=== PATIENT | female | born 1995 | race Asian ===

== ENCOUNTER 2019-02-13 00:06 | Emergency (ER) | payer OTHER ==
[~2019-02-13] VITALS: Ht 154.9 cm; Wt 61.8 kg
[2019-02-13] MEDS ORDERED: DEPA1TAB3 PO (00:13)
[2019-02-13] MEDS ORDERED: CONC27TA4 PO (00:13)
[2019-02-13] MEDS ORDERED: CLON-627 PO (00:14)
[2019-02-13 01:07] LABS: BASO % 0.4 % (0.0-1.0); EOS # 0.1 10^3/uL (0.0-0.5); EOS % 1.2 % (0.0-3.0); HEMATOCRIT 39.3 % (36.0-47.0); HEMOGLOBIN 12.9 g/dl (12.0-15.5); LYMPH # 3.4 10^3/uL (1.5-5.0); LYMPH % 37.6 % (24.0-44.0); MEAN CORPUSCULAR HEMOGLOBIN 22.9 pg (27.0-33.0); MEAN CORPUSCULAR HGB CONC 32.8 g/dl (32.0-36.5); MEAN CORPUSCULAR VOLUME 69.7 fl (80.0-96.0); MONO # 0.6 10^3/uL (0.0-0.8); NEUTROPHILS # 4.8 10^3/uL (1.5-8.5); NEUTROPHILS % 53.7 % (36.0-66.0); PLATELET COUNT, AUTOMATED 378 10^3/uL (150-450); RED BLOOD COUNT 5.64 10^6/uL (4.00-5.40); WHITE BLOOD COUNT 8.9 10^3/uL (4.0-10.0)
[2019-02-13 01:20] LABS: BLOOD UREA NITROGEN 15 MG/DL (7-18); CALCIUM LEVEL 8.9 MG/DL (8.5-10.1); CARBON DIOXIDE LEVEL 29 MEQ/L (21-32); CHLORIDE LEVEL 104 MEQ/L (98-107); CK-MB VALUE MASS < 1.0 NG/ML (<3.6); CPK CREATINE PHOSPHOKINASE 94 U/L (26-192); CREATININE FOR GFR 0.82 MG/DL (0.55-1.30); GLOMERULAR FILTRATION RATE > 60.0 (>60); GLUCOSE, FASTING 84 MG/DL (70-100); MB/CK RELATIVE INDEX 1.06 (< OR =4); POTASSIUM SERUM 3.7 MEQ/L (3.5-5.1); SODIUM LEVEL 138 MEQ/L (136-145); TROPONIN I < 0.02 NG/ML (< 0.10)
[2019-02-13 02:09] LABS: ALBUMIN 3.8 GM/DL (3.2-5.2); ALT/SGPT 23 U/L (12-78); BILIRUBIN,DIRECT 0.1 MG/DL (0.0-0.2); BILIRUBIN,TOTAL 0.6 MG/DL (0.2-1.0); LIPASE 121 U/L (73-393); TOTAL PROTEIN 7.9 GM/DL (6.4-8.2)
[2019-02-13] MEDS ORDERED: ONDANSETRON 4MG/2ML VIAL (J2405) IV ONE (02:30)
[2019-02-13] MEDS ORDERED: COLA100C5 PO (04:38)
[2019-02-13 04:49] VITALS: BP 102/56
--- NOTE | 2019-02-13 07:48 | REP ---
Clinical: Epigastric and upper abdominal pain. Technique: Upright view of the chest with supine and upright views of the abdomen and pelvis. Findings: Frontal upright view of the chest demonstrates no acute cardiopulmonary process or free air below the diaphragm to suspect pneumoperitoneum. Supine and upright views of the abdomen and pelvis demonstrate nonspecific bowel gas pattern without obstruction or perforation. No organomegaly. No abnormal calcifications. Sevilla rods spanning the thoracolumbar spine noted. Impression: Nonspecific bowel gas pattern. Electronically Signed by Ismael Larson MD 02/13/2019 07:39 A
--- NOTE | 2019-02-13 07:52 | REP ---
Clinical: Lower abdominal and pelvic pain. Technique: Transabdominal pelvic ultrasound followed by transvaginal examination for better evaluation of the endometrium and adnexa with color Doppler evaluation of the ovaries. Findings: Bladder is unremarkable and incompletely distended measuring approximately 4.3 x 2.0 x 2.6 cm. Heterogeneous retroflexed uterus measures 9.0 x 4.4 x 5.7 cm. Endometrial complex measures 8 mm thickness. No discrete uterine or endometrial abnormalities appreciated. The bilateral ovaries are normal in appearance and vascularity without torsion. Right ovary measures 4.8 x 2.9 x 2.9 cm (RI 0.61). Left ovary measures 3.5 x 2.5 x 3.8 cm and includes 2.3 cm presumed physiologic cyst / dominant follicle (RI 0.57). No pelvic fluid or adnexal mass lesion. Impression: 1. 2.3 cm left ovarian cyst / dominant follicle. 2. Otherwise normal pelvic ultrasound. Electronically Signed by Ismael Larson MD 02/13/2019 07:43 A
--- NOTE | 2019-02-13 08:00 | ECGEPIP ---
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
== END 2019-02-13 05:04 | disposition home or self-care (01) ==
LOC: M ED 00:06
DX: R07.89 Other chest pain (principal); K56.49 Other impaction of intestine; Z79.899 Other long term (current) drug therapy
CPT/HCPCS: 74021; 76830; 76856; 80048; 80076; 81001; 82550; 82553; 83690; 84484; 84702; 85025; 87086; 93005; 93041; 93976; 94760; 96374; 99285; J2405

== ENCOUNTER 2019-04-11 17:57 | Emergency (ER) | payer OTHER ==
[~2019-04-11] VITALS: Ht 152.4 cm; Wt 77.1 kg
[~2019-04-11 17:57] MED LIST: CLON-627 PO; COLA100C5 PO; CONC27TA4 PO; DEPA1TAB3 PO
[2019-04-11] MEDS ORDERED: NS 1,000 ML IV SCH (20:30)
[2019-04-11] MEDS ORDERED: fentaNYL 100 MCG/2 ML INJECTION (J3010) IV ONE (20:30)
[2019-04-11 20:34] LABS: BASO # 0.1 10^3/uL (0.0-0.2); BASO % 0.3 % (0.0-1.0); EOS # 0.1 10^3/uL (0.0-0.5); EOS % 0.6 % (0.0-3.0); HEMATOCRIT 44.2 % (36.0-47.0); LYMPH # 3.5 10^3/uL (1.5-5.0); LYMPH % 22.5 % (24.0-44.0); MEAN CORPUSCULAR HEMOGLOBIN 22.3 pg (27.0-33.0); MEAN CORPUSCULAR HGB CONC 31.7 g/dl (32.0-36.5); MEAN CORPUSCULAR VOLUME 70.4 fl (80.0-96.0); MONO # 0.7 10^3/uL (0.0-0.8); MONO % 4.6 % (0.0-5.0); NEUTROPHILS # 11.1 10^3/uL (1.5-8.5); NEUTROPHILS % 71.5 % (36.0-66.0); PLATELET COUNT, AUTOMATED 379 10^3/uL (150-450); RED BLOOD COUNT 6.28 10^6/uL (4.00-5.40); WHITE BLOOD COUNT 15.5 10^3/uL (4.0-10.0)
[2019-04-11 20:51] LABS: ALBUMIN 4.2 GM/DL (3.2-5.2); ALT/SGPT 21 U/L (12-78); BILIRUBIN,DIRECT 0.2 MG/DL (0.0-0.2); BILIRUBIN,TOTAL 0.6 MG/DL (0.2-1.0); BLOOD UREA NITROGEN 14 MG/DL (7-18); CARBON DIOXIDE LEVEL 28 MEQ/L (21-32); CHLORIDE LEVEL 103 MEQ/L (98-107); CREATININE FOR GFR 0.77 MG/DL (0.55-1.30); GLOMERULAR FILTRATION RATE > 60.0 (>60); GLUCOSE, FASTING 73 MG/DL (70-100); INR 1.03; PARTIAL THROMBOPLASTIN TIME 33.3 SECONDS (25.0-38.4); PROTHROMBIN TIME 13.2 SECONDS (11.8-14.0); SODIUM LEVEL 139 MEQ/L (136-145); TOTAL PROTEIN 8.3 GM/DL (6.4-8.2)
[2019-04-11 21:17] VITALS: BP 109/61
--- NOTE | 2019-04-12 08:16 | REP ---
Head CT without contrast: Repeat dictation. History: Trauma. Preliminary report is provided at the time of exam by Willa frazier. Comparison study: No comparison brain imaging. CT findings: Bone window settings demonstrate an intact bony calvarium. There is no evidence of skull fracture or incidental bony calvarial lesion. The visualized paranasal sinuses appear clear. No intraorbital abnormality is seen. On soft tissue window setting images; the lateral, third, and fourth ventricles are normal in size and position. Sosa-white differentiation pattern is normal above and below the tentorium. There are is no evidence of intracranial hemorrhage. No mass, edema, infarction, or midline shift is seen. No extra-axial fluid collection is appreciated. Impression: Negative noncontrast head CT. Electronically Signed by Catrachito Byers MD 04/12/2019 08:08 A
--- NOTE | 2019-04-12 08:18 | REP ---
CT study of the cervical spine without contrast: Repeat dictation History: Trauma. Preliminary report is provided at the time of exam by Willa CABRAL. Technique: Helical scanning is acquired and overlapping 2 mm high resolution axial images were generated and reviewed at bone and soft tissue window settings. Coronal and sagittal multiplanar re-formations images are generated. CT findings: There is no evidence of cervical spine element fracture. No skull base fracture is seen. Cervical vertebral body heights are preserved. There is some slight reversal of the normal cervical lordosis and straightening. Alignment is normal. Facet joints are normally aligned bilaterally at each cervical level on multiplanar re-formations images. There is no evidence of intraspinal or paraspinal hematoma. No extra vertebral abnormality is seen. Impression: Negative CT study of the cervical spine without contrast. No fracture seen. Electronically Signed by Catrachito Byers MD 04/12/2019 08:10 A
== END 2019-04-11 21:32 | disposition short-term general hospital (02) ==
LOC: M ED 17:57
DX: R20.2 Paresthesia of skin (principal); V80.010A Animal-rider injured by fall from or being thrown from horse in noncollision accident, initial encounter; Z88.0 Allergy status to penicillin; Z88.1 Allergy status to other antibiotic agents; Z88.5 Allergy status to narcotic agent; Z79.899 Other long term (current) drug therapy
CPT/HCPCS: 51702; 70450; 72125; 80048; 80076; 85025; 85610; 85730; 86850; 86900; 86901; 93041; 94760; 96374; 99285; J3010

== ENCOUNTER 2019-05-03 12:30 | Emergency (ER) | payer OTHER ==
[~2019-05-03] VITALS: Ht 152.4 cm; Wt 76.3 kg
[2019-05-03] MEDS ORDERED: ACET-683 PO (12:40)
[2019-05-03] MEDS ORDERED: IBUP200C25 PO (12:40)
[2019-05-03 14:58] LABS: INFLUENZA A AMPLIFICATION NEGATIVE (NEGATIVE); INFLUENZA B AMPLIFICATION POSITIVE (NEGATIVE)
[2019-05-03] MEDS ORDERED: NS 1,000 ML IV ONE (15:15)
[2019-05-03] MEDS ORDERED: ACETAMINOPHEN 325 MG TAB PO ONE (15:15)
[2019-05-03] MEDS ORDERED: ONDANSETRON 4MG/2ML VIAL (J2405) IV ONE (15:15)
[2019-05-03 15:37] LABS: BASO % 0.3 % (0.0-1.0); HEMATOCRIT 41.9 % (36.0-47.0); HEMOGLOBIN 13.7 g/dl (12.0-15.5); LYMPH # 2.2 10^3/uL (1.5-5.0); LYMPH % 23.7 % (24.0-44.0); MEAN CORPUSCULAR HEMOGLOBIN 22.6 pg (27.0-33.0); MEAN CORPUSCULAR HGB CONC 32.7 g/dl (32.0-36.5); MEAN CORPUSCULAR VOLUME 69.1 fl (80.0-96.0); MONO # 0.9 10^3/uL (0.0-0.8); MONO % 9.5 % (0.0-5.0); NEUTROPHILS % 66.2 % (36.0-66.0); PLATELET COUNT, AUTOMATED 288 10^3/uL (150-450); RED BLOOD COUNT 6.06 10^6/uL (4.00-5.40); WHITE BLOOD COUNT 9.1 10^3/uL (4.0-10.0)
[2019-05-03 16:00] LABS: BLOOD UREA NITROGEN 7 MG/DL (7-18); CALCIUM LEVEL 8.6 MG/DL (8.5-10.1); CARBON DIOXIDE LEVEL 28 MEQ/L (21-32); CHLORIDE LEVEL 101 MEQ/L (98-107); CREATININE FOR GFR 0.95 MG/DL (0.55-1.30); GLOMERULAR FILTRATION RATE > 60.0 (>60); GLUCOSE, FASTING 86 MG/DL (70-100); POTASSIUM SERUM 3.8 MEQ/L (3.5-5.1); SODIUM LEVEL 137 MEQ/L (136-145)
[2019-05-03] MEDS ORDERED: KETOROLAC 30 MG/ML VIAL (J1885) IV ONE (16:30)
[2019-05-03] MEDS ORDERED: BENZ200C70 PO (17:01)
[2019-05-03] MEDS ORDERED: ONDA4TAB6 PO (17:01)
[2019-05-03 17:16] VITALS: BP 110/58
--- NOTE | 2019-05-04 05:43 | ECGEPIP ---
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 Order Number: [id number] Reading MD: Sukhwinder Daniel Measurements Intervals [place] Rate: 114 P: 40 MN: 135 QRS: 25 QRSD: 77 T: 16 QT: 342 QTc: 472 Interpretive Statements SINUS TACHYCARDIA Nonspecific ST-T wave abnormalities new from tracing done 02-13-19 Electronically Signed on 05-04-2019 5:43:04 EST by Sukhwinder Daniel
== END 2019-05-03 17:19 | disposition home or self-care (01) ==
LOC: M ED 12:30
DX: J10.1 Influenza due to other identified influenza virus with other respiratory manifestations (principal); E86.0 Dehydration; F84.0 Autistic disorder; D56.5 Hemoglobin E-beta thalassemia; Z86.69 Personal history of other diseases of the nervous system and sense organs; Z88.0 Allergy status to penicillin; Z88.1 Allergy status to other antibiotic agents; Z88.5 Allergy status to narcotic agent; Z79.899 Other long term (current) drug therapy
CPT/HCPCS: 36415; 80048; 85025; 87502; 87880; 93005; 96361; 96374; 96375; 99284; J1885; J2405

== ENCOUNTER 2019-06-11 21:56 | Emergency (ER) | payer OTHER, SELFPAY ==
[~2019-06-11] VITALS: Ht 154.9 cm; Wt 59.1 kg
[~2019-06-11 21:56] MED LIST changes: +ACET-683 PO; +BENZ200C70 PO; +IBUP200C25 PO; +ONDA4TAB6 PO
[2019-06-11 23:01] LABS: INFLUENZA A AMPLIFICATION NEGATIVE (NEGATIVE); INFLUENZA B AMPLIFICATION NEGATIVE (NEGATIVE)
[2019-06-11 23:10] LABS: BASO % 0.3 % (0.0-1.0); EOS # 0.2 10^3/uL (0.0-0.5); EOS % 1.8 % (0.0-3.0); HEMATOCRIT 39.3 % (36.0-47.0); HEMOGLOBIN 12.7 g/dl (12.0-15.5); LYMPH # 3.2 10^3/uL (1.5-5.0); LYMPH % 24.7 % (24.0-44.0); MEAN CORPUSCULAR HEMOGLOBIN 22.3 pg (27.0-33.0); MEAN CORPUSCULAR HGB CONC 32.3 g/dl (32.0-36.5); MEAN CORPUSCULAR VOLUME 69.1 fl (80.0-96.0); MONO # 0.6 10^3/uL (0.0-0.8); MONO % 4.5 % (0.0-5.0); NEUTROPHILS # 8.9 10^3/uL (1.5-8.5); NEUTROPHILS % 68.3 % (36.0-66.0); PLATELET COUNT, AUTOMATED 412 10^3/uL (150-450); RED BLOOD COUNT 5.69 10^6/uL (4.00-5.40); WHITE BLOOD COUNT 13.1 10^3/uL (4.0-10.0)
[2019-06-11 23:31] LABS: BLOOD UREA NITROGEN 10 MG/DL (7-18); CALCIUM LEVEL 8.9 MG/DL (8.5-10.1); CARBON DIOXIDE LEVEL 31 MEQ/L (21-32); CHLORIDE LEVEL 104 MEQ/L (98-107); CK-MB VALUE MASS < 1.0 NG/ML (<3.6); CPK CREATINE PHOSPHOKINASE 81 U/L (26-192); CREATININE FOR GFR 0.78 MG/DL (0.55-1.30); GLOMERULAR FILTRATION RATE > 60.0 (>60); GLUCOSE, FASTING 102 MG/DL (70-100); MB/CK RELATIVE INDEX 1.23 (< OR =4); POTASSIUM SERUM 3.9 MEQ/L (3.5-5.1); SODIUM LEVEL 137 MEQ/L (136-145); TROPONIN I < 0.02 NG/ML (< 0.10)
[2019-06-12 00:04] VITALS: BP 128/78
--- NOTE | 2019-06-12 05:47 | ECGEPIP ---
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
--- NOTE | 2019-06-12 07:59 | REP ---
Clinical: Chest pain and shortness of breath . Comparison: None . Findings: The mediastinum and cardiac silhouette are stable and within normal limits for portable technique. The lung dixon are clear without acute consolidation, effusion, or pneumothorax. Skeletal structures are intact. Sevilla rods noted. Impression: No acute cardiopulmonary process appreciated. Electronically Signed by Ismael Larson MD 06/12/2019 07:51 A
== END 2019-06-12 00:06 | disposition home or self-care (01) ==
LOC: M ED 21:56
DX: B34.9 Viral infection, unspecified (principal); R06.02 Shortness of breath; R50.9 Fever, unspecified; R07.9 Chest pain, unspecified; F84.0 Autistic disorder; F91.9 Conduct disorder, unspecified; Z88.0 Allergy status to penicillin; Z88.1 Allergy status to other antibiotic agents; Z88.5 Allergy status to narcotic agent; Z79.899 Other long term (current) drug therapy
CPT/HCPCS: 36415; 71045; 80048; 82550; 82553; 84484; 85025; 87502; 93005; 99284; U0002

== ENCOUNTER 2019-09-18 04:07 | Emergency (ER) | payer OTHER, SELFPAY ==
[~2019-09-18] VITALS: Ht 152.4 cm; Wt 72.7 kg
[2019-09-18 05:02] LABS: BASO # 0.1 10^3/uL (0.0-0.2); BASO % 0.4 % (0.0-1.0); EOS # 0.1 10^3/uL (0.0-0.5); EOS % 0.6 % (0.0-3.0); HEMATOCRIT 40.6 % (36.0-47.0); HEMOGLOBIN 13.4 g/dl (12.0-15.5); LYMPH # 3.6 10^3/uL (1.5-5.0); LYMPH % 26.6 % (24.0-44.0); MEAN CORPUSCULAR HEMOGLOBIN 22.8 pg (27.0-33.0); MEAN CORPUSCULAR VOLUME 68.9 fl (80.0-96.0); MONO # 0.8 10^3/uL (0.0-0.8); PLATELET COUNT, AUTOMATED 429 10^3/uL (150-450); RED BLOOD COUNT 5.89 10^6/uL (4.00-5.40); WHITE BLOOD COUNT 13.5 10^3/uL (4.0-10.0)
[2019-09-18 07:27] VITALS: BP 103/59
--- NOTE | 2019-09-18 08:35 | REP ---
REPEAT DICTATION OBSTETRIC SONOGRAPHY: HISTORY: Preliminary report is provided at the time of the exam by [facility]. Injury in a fall. Blunt trauma. FINDINGS: Transabdominal and transvaginal scanning demonstrate a tiny sac like structure in the uterine endometrium. Mean sac size diameter is 4.8 mm. This would correspond with a gestational age estimate 5 weeks 0 days. No yolk sac or embryonic pole is seen. No free fluid is seen in the cul-de-sac. No adnexal mass or complex cyst is appreciated. Right ovarian dimensions are 3.3 x 2.1 x 3.0 cm. Left ovary measures 3.7 x 2.6 x 2.7 cm. Doppler flow is present in both ovaries. IMPRESSION: Small sac-like structure in the uterine endometrium, 5-week 0 days size by sac size diameter criteria. No yolk sac or embryonic pole. Clinical and possibly sonographic followup suggested. Electronically Signed by Catrachito Byers MD 09/18/2019 09:24 A
== END 2019-09-18 07:25 | disposition home or self-care (01) ==
LOC: M ED 04:07
DX: Z04.3 Encounter for examination and observation following other accident (principal); O9A.213 Injury, poisoning and certain other consequences of external causes complicating pregnancy, third trimester; W01.0XXA Fall on same level from slipping, tripping and stumbling without subsequent striking against object, initial encounter; Z3A.00 Weeks of gestation of pregnancy not specified

== ENCOUNTER → 2022-08-26 | Outpatient (CLI) | payer MEDICAID, OTHER ==
[2022-08-26 19:03] LABS: HEMATOCRIT 38.6 % (36.0-47.0); HEMOGLOBIN 12.6 g/dl (12.0-15.5); MEAN CORPUSCULAR HEMOGLOBIN 23.1 pg (27.0-33.0); MEAN CORPUSCULAR HGB CONC 32.6 g/dl (32.0-36.5); MEAN CORPUSCULAR VOLUME 70.7 fl (80.0-96.0); PLATELET COUNT, AUTOMATED 381 10^3/uL (150-450); RED BLOOD COUNT 5.46 10^6/uL (4.00-5.40); WHITE BLOOD COUNT 15.4 10^3/uL (4.0-10.0)
[2022-08-26 19:33] LABS: HIV 1&2 SCREEN NEGATIVE (NEGATIVE)
[2022-08-26 19:41] LABS: HEPATITIS C VIRUS ABY INDEX 0.1 INDEX (<0.8); LITHIUM LEVEL < 0.20 MMOL/L (0.60-1.20)
[2022-08-26 20:45] LABS: GC DNA AMPLIFICATION NEGATIVE (NEGATIVE)
== END ==
LOC: M PLALAB 14:55
PROVIDERS: ATTEND Advanced Practice Midwife
DX: Z34.82 Encounter for supervision of other normal pregnancy, second trimester (principal)

== ENCOUNTER → 2022-10-04 | Outpatient (REF) | payer OTHER | LOC: M PLALAB 09:46 | PROVIDERS: ATTEND Obstetrics & Gynecology | DX: R82.90 Unspecified abnormal findings in urine (principal) ==

== ENCOUNTER → 2022-11-05 | Outpatient (CLI) | payer OTHER | LOC: M WHC 07:31 | PROVIDERS: ATTEND Obstetrics & Gynecology | DX: Z36.2 Encounter for other antenatal screening follow-up (principal) ==

== ENCOUNTER → 2022-11-19 | Outpatient (CLI) | payer OTHER ==
[2022-11-19 15:35] LABS: HEMATOCRIT 34.2 % (36.0-47.0); HEMOGLOBIN 11.2 g/dl (12.0-15.5); MEAN CORPUSCULAR HGB CONC 32.7 g/dl (32.0-36.5); MEAN CORPUSCULAR VOLUME 70.4 fl (80.0-96.0); PLATELET COUNT, AUTOMATED 359 10^3/uL (150-450); RED BLOOD COUNT 4.86 10^6/uL (4.00-5.40); WHITE BLOOD COUNT 13.8 10^3/uL (4.0-10.0)
[2022-11-19 17:03] LABS: GC DNA AMPLIFICATION NEGATIVE (NEGATIVE)
== END ==
LOC: M PLALAB 12:50
PROVIDERS: ATTEND Obstetrics & Gynecology
DX: O34.211 Maternal care for low transverse scar from previous cesarean delivery (principal); Z3A.00 Weeks of gestation of pregnancy not specified

== ENCOUNTER 2022-12-07 09:22 | Outpatient (CLI) | payer OTHER ==
[~2022-12-07] VITALS: Ht 152.4 cm; Wt 87.6 kg
[2022-12-07 09:44] VITALS: BP 113/72
[2022-12-07] MEDS ORDERED: PRENTAB9 PO (10:05)
[2022-12-07] MEDS ORDERED: HYDR-3363 PO (10:05)
[2022-12-07] MEDS ORDERED: HOME MED LIST COMPLETE! XX SCH (10:10)
[2022-12-07] MEDS ORDERED: ACETAMINOPHEN 500 MG TAB PO PRN (10:35)
[2022-12-07 12:32] VITALS: BP 98/55
== END 2022-12-07 13:31 | disposition home or self-care (01) ==
LOC: M LDO 09:22
PROVIDERS: ATTEND Obstetrics & Gynecology
DX: O26.893 Other specified pregnancy related conditions, third trimester (principal); O34.218 Maternal care for other type scar from previous cesarean delivery; N89.8 Other specified noninflammatory disorders of vagina; W10.9XXA Fall (on) (from) unspecified stairs and steps, initial encounter; Y92.9 Unspecified place or not applicable; Y93.9 Activity, unspecified; Z3A.29 29 weeks gestation of pregnancy; Z87.51 Personal history of pre-term labor
CPT/HCPCS: 59025; G0463

== ENCOUNTER 2023-01-03 17:42 | Outpatient (CLI) | payer OTHER ==
[~2023-01-03] VITALS: Ht 154.9 cm; Wt 89.6 kg
[~2023-01-03 17:42] MED LIST changes: +HYDR-3363 PO; +PRENTAB9 PO
[2023-01-03 17:57] VITALS: BP 120/64
[2023-01-03] MEDS ORDERED: ACET500P3 PO (18:03)
[2023-01-03 19:43] LABS: HEMATOCRIT 31.5 % (36.0-47.0); HEMOGLOBIN 10.3 g/dl (12.0-15.5); MEAN CORPUSCULAR HEMOGLOBIN 22.2 pg (27.0-33.0); MEAN CORPUSCULAR HGB CONC 32.7 g/dl (32.0-36.5); PLATELET COUNT, AUTOMATED 323 10^3/uL (150-450); RED BLOOD COUNT 4.63 10^6/uL (4.00-5.40); WHITE BLOOD COUNT 13.5 10^3/uL (4.0-10.0)
[2023-01-03 19:54] LABS: INR 1.06; PROTHROMBIN TIME 13.5 SECONDS (12.5-14.5)
[2023-01-03 19:58] VITALS: BP 115/63
== END 2023-01-03 21:21 ==
LOC: M LDO 17:42
PROVIDERS: ATTEND Advanced Practice Midwife
DX: O36.8130 Decreased fetal movements, third trimester, not applicable or unspecified (principal); O34.218 Maternal care for other type scar from previous cesarean delivery; Z87.74 Personal history of (corrected) congenital malformations of heart and circulatory system; Z87.51 Personal history of pre-term labor; O98.313 Other infections with a predominantly sexual mode of transmission complicating pregnancy, third trimester; A60.09 Herpesviral infection of other urogenital tract; Z88.0 Allergy status to penicillin; Z88.1 Allergy status to other antibiotic agents; Z88.5 Allergy status to narcotic agent; W19.XXXA Unspecified fall, initial encounter; Y92.091 Bathroom in other non-institutional residence as the place of occurrence of the external cause; Y93.9 Activity, unspecified; Y99.9 Unspecified external cause status; Z3A.32 32 weeks gestation of pregnancy
CPT/HCPCS: 36415; 59025; 76815; 76819; 76820; 85027; 85384; 85460; 85610; G0463

== ENCOUNTER 2023-01-19 19:45 | Outpatient (CLI) | payer OTHER ==
[~2023-01-19] VITALS: Ht 154.9 cm; Wt 89.9 kg
[~2023-01-19 19:45] MED LIST changes: +ACET500P3 PO
[2023-01-19 20:02] VITALS: BP 137/88
[2023-01-19] MEDS ORDERED: LACTATED RINGER'S 1000 ML IV ONE (20:30)
[2023-01-19] MEDS ORDERED: LR 1,000 ML IV SCH (20:30)
[2023-01-19] MEDS ORDERED: BETAMETHASONE SOLUSPAN 6MG/ML 5ML VIAL IM SCH (20:30)
[2023-01-19 21:13] LABS: HEMATOCRIT 34.6 % (36.0-47.0); HEMOGLOBIN 11.2 g/dl (12.0-15.5); MEAN CORPUSCULAR HEMOGLOBIN 21.5 pg (27.0-33.0); MEAN CORPUSCULAR HGB CONC 32.4 g/dl (32.0-36.5); MEAN CORPUSCULAR VOLUME 66.4 fl (80.0-96.0); PLATELET COUNT, AUTOMATED 364 10^3/uL (150-450); RED BLOOD COUNT 5.21 10^6/uL (4.00-5.40); WHITE BLOOD COUNT 14.3 10^3/uL (4.0-10.0)
[2023-01-19] MEDS ORDERED: VALT1TAB PO (21:59)
[2023-01-19] MEDS ORDERED: hydrOXYzine 50 MG TAB PO ONE (22:30)
== END 2023-01-20 07:20 | disposition home or self-care (01) ==
LOC: M LDO 19:45
PROVIDERS: ATTEND Advanced Practice Midwife
DX: O47.03 False labor before 37 completed weeks of gestation, third trimester (principal); O34.219 Maternal care for unspecified type scar from previous cesarean delivery; O98.313 Other infections with a predominantly sexual mode of transmission complicating pregnancy, third trimester; O99.113 Other diseases of the blood and blood-forming organs and certain disorders involving the immune mechanism complicating pregnancy, third trimester; Z3A.35 35 weeks gestation of pregnancy; Z88.0 Allergy status to penicillin; Z88.1 Allergy status to other antibiotic agents; Z88.5 Allergy status to narcotic agent; Z91.018 Allergy to other foods
CPT/HCPCS: 59025; 85027; 86780; 86850; 86900; 86901; G0463; J0702

== ENCOUNTER 2023-01-20 20:41 | Outpatient (CLI) | payer OTHER ==
[~2023-01-20] VITALS: Ht 180.3 cm; Wt 91.7 kg
[~2023-01-20 20:41] MED LIST changes: +VALT1TAB PO
[2023-01-20] MEDS ORDERED: BETAMETHASONE SOLUSPAN 6MG/ML 5ML VIAL IM ONE (21:05)
[2023-01-20 21:09] VITALS: BP 135/72
== END 2023-01-20 21:50 | disposition home or self-care (01) ==
LOC: M LDO 20:41
PROVIDERS: ATTEND Obstetrics & Gynecology
DX: O47.03 False labor before 37 completed weeks of gestation, third trimester (principal); O34.211 Maternal care for low transverse scar from previous cesarean delivery; Z87.74 Personal history of (corrected) congenital malformations of heart and circulatory system; Z87.51 Personal history of pre-term labor; Z88.0 Allergy status to penicillin; Z88.1 Allergy status to other antibiotic agents; Z88.5 Allergy status to narcotic agent; Z91.018 Allergy to other foods
CPT/HCPCS: 59025; 96372; G0463; J0702

== ENCOUNTER 2023-01-22 20:21 | Outpatient (CLI) | payer OTHER ==
[~2023-01-22] VITALS: Ht 154.9 cm; Wt 91.1 kg
[2023-01-22 20:37] VITALS: BP 137/80
[2023-01-22] MEDS ORDERED: HOME MED LIST COMPLETE! XX SCH (20:40)
== END 2023-01-22 22:56 | disposition home or self-care (01) ==
LOC: M LDO 20:21
PROVIDERS: ATTEND Obstetrics & Gynecology
DX: O47.03 False labor before 37 completed weeks of gestation, third trimester (principal); Z3A.35 35 weeks gestation of pregnancy
CPT/HCPCS: 59025; 76815; 76819; 76820; G0463

== ENCOUNTER 2023-01-26 15:36 | Inpatient (IN) | payer OTHER ==
[~2023-01-26] VITALS: Ht 152.4 cm; Wt 93.3 kg
[2023-01-26 15:54] VITALS: BP 129/71
[2023-01-26] MEDS ORDERED: HOME MED LIST COMPLETE! XX SCH (15:55)
[2023-01-26 17:23] LABS: APPEARANCE, URINE HAZY (CLEAR); BACTERIA, URINE AUTO 1+ (NEGATIVE); BILIRUBIN, URINE AUTO NEGATIVE (NEGATIVE); BLOOD, URINE BLOOD NEGATIVE (NEGATIVE); COLOR, URINE YELLOW (YELLOW); GLUCOSE, URINE (UA) AUTO NEGATIVE (NEGATIVE); KETONE, URINE AUTO NEGATIVE (NEGATIVE); LEUKOCYTE ESTERASE, URINE AUTO NEGATIVE (NEGATIVE); NITRITE, URINE AUTO NEGATIVE (NEGATIVE); PROTEIN, URINE AUTO NEGATIVE (NEGATIVE); RBC, URINE AUTO 0 /HPF (0-3); SPECIFIC GRAVITY URINE AUTO 1.004 (1.002-1.035); SQUAMOUS EPITHELIAL CELL UR AU 2 /HPF (0-6); UROBILINOGEN, URINE AUTO 0.2 mg/dL (0.0-2.0); WBC, URINE AUTO 2 /HPF (0-3)
[2023-01-26 19:01] VITALS: BP 144/92
[2023-01-26] MEDS ORDERED: LACTATED RINGER'S 1000 ML IV STA (19:52)
[2023-01-26] MEDS ORDERED: LR 1,000 ML IV SCH (19:55)
[2023-01-26] MEDS ORDERED: TRANEXAMIC ACID INJection 1,000 MG in NS 100 ML IV PRN (19:55)
[2023-01-26] MEDS ORDERED: METHYLERGONOVINE MALEATE 0.2MG/ML 1ML VIAL IM PRN (19:55)
[2023-01-26] MEDS ORDERED: OXYTOCIN INJ 10UNITS/ML 1ML VIAL IM PRN (19:55)
[2023-01-26] MEDS ORDERED: LIDOCAINE 1% MDV 20ML VIAL INFIL PRN (19:55)
[2023-01-26] MEDS ORDERED: OXYTOCIN DRIP 30 UNITS in IV 1 EA IV PRN (19:55)
[2023-01-26] MEDS ORDERED: CARBOPROST TROMETHAMINE 250 MCG/ML AMP IM PRN (19:55)
[2023-01-26] MEDS ORDERED: BICITRA 30ML SOLN UDC PO ONE (19:55)
[2023-01-26] MEDS ORDERED: VANCOMYCIN HCL 1,000 MG, VIAL MATE ADAPTER 1 EACH in D5W 250 ML IV ONE (20:00)
[2023-01-26 20:31] LABS: HEMATOCRIT 36.9 % (36.0-47.0); MEAN CORPUSCULAR HEMOGLOBIN 21.5 pg (27.0-33.0); MEAN CORPUSCULAR HGB CONC 32.5 g/dl (32.0-36.5); MEAN CORPUSCULAR VOLUME 66.1 fl (80.0-96.0); PLATELET COUNT, AUTOMATED 407 10^3/uL (150-450); RED BLOOD COUNT 5.58 10^6/uL (4.00-5.40); WHITE BLOOD COUNT 14.2 10^3/uL (4.0-10.0)
[2023-01-26 20:49] VITALS: BP 144/89
[2023-01-26 20:54] LABS: URIC ACID 4.9 MG/DL (3.1-7.8)
[2023-01-26 20:56] LABS: LDH LACTATE DEHYDROGENASE 188 U/L (120-246)
[2023-01-26 20:57] LABS: ALT/SGPT 14 U/L (7.0-40); AST/SGOT 12 U/L (<34); BILIRUBIN,TOTAL 0.4 MG/DL (0.3-1.2); CREATININE FOR GFR 0.45 MG/DL (0.55-1.30); GLOMERULAR FILTRATION RATE > 60.0 (>60)
[2023-01-26] MEDS ORDERED: VANCOMYCIN HCL 500 MG in D5W MINI-BAG PLUS 100 ML IV ONE (21:00)
[2023-01-26] MEDS ORDERED: OXYTOCIN INJ 10UNITS/ML 1ML VIAL As Ordered ONE ×2 (21:17→23:03)
[2023-01-26] MEDS ORDERED: ONDANSETRON 4MG 2ML VIAL As Ordered ONE (21:17)
[2023-01-26] MEDS ORDERED: KETOROLAC 60MG 2ML VIAL As Ordered ONE (21:17)
[2023-01-26] MEDS ORDERED: fentaNYL 100 MCG/2 ML INJECTION As Ordered ONE (21:17)
[2023-01-26] MEDS ORDERED: MIDAZOLAM INJ 2MG/2ML VIAL As Ordered ONE (22:21)
[2023-01-26] MEDS ORDERED: ePHEDrine SULFATE 25 MG/5 ML(5MG/ML) SYRINGE As Ordered ONE (22:25)
[2023-01-26] MEDS ORDERED: PHENYLephrine 500MCG 5ML (100MCG/ML) SYRINGE As Ordered ONE (22:25)
[2023-01-26] MEDS ORDERED: RHOGAM 300MCG (1500IU) INJ IM SCH (23:35)
[2023-01-26] MEDS ORDERED: OXYTOCIN DRIP 30 UNITS in IV 1 EA IV SCH (23:35)
[2023-01-26] MEDS ORDERED: DOCUSATE SODIUM 100MG CAPSULE PO PRN (23:35)
[2023-01-26] MEDS ORDERED: COLA100C5 PO (23:41)
[2023-01-26] MEDS ORDERED: OXYC-517 PO ×2 (23:41→23:50)
[2023-01-26] MEDS ORDERED: ACET-683 PO (23:41)
[2023-01-26] MEDS ORDERED: IBUP-1022 PO (23:41)
[2023-01-27] VITALS (9 sets, daily range): BP systolic 108–129; BP diastolic 55–73; TEMP 97.6; O2SAT 96–99
[2023-01-27] MEDS: ACETAMINOPHEN 500 MG TAB PO SCH ×4 (00:14→19:37)
[2023-01-27] MEDS: oxyCODONE 5MG TAB PO PRN ×3 (02:03→21:33)
[2023-01-27] MEDS: KETOROLAC 30 MG/ML 1ML VIAL IV SCH ×3 (03:51→16:30)
[2023-01-27] MEDS: PRENATAL VITAMINS CHEWABLE TABLET PO SCH (08:08)
[2023-01-27 09:20] LABS: HEMATOCRIT 31.9 % (36.0-47.0); HEMOGLOBIN 10.3 g/dl (12.0-15.5); MEAN CORPUSCULAR HEMOGLOBIN 21.2 pg (27.0-33.0); MEAN CORPUSCULAR HGB CONC 32.3 g/dl (32.0-36.5); MEAN CORPUSCULAR VOLUME 65.6 fl (80.0-96.0); PLATELET COUNT, AUTOMATED 353 10^3/uL (150-450); RED BLOOD COUNT 4.86 10^6/uL (4.00-5.40); WHITE BLOOD COUNT 25.6 10^3/uL (4.0-10.0)
[2023-01-27] MEDS: SIMETHICONE 80MG CHEW TAB PO PRN (11:52)
[2023-01-27] MEDS ORDERED: INFLUENZA QUADRIVALENT PF VACCINE 0.5ML SYRINGE IM.IMMUN ONE (16:00)
[2023-01-28] MEDS: IBUPROFEN 600MG TAB PO SCH ×2 (00:50→06:12)
[2023-01-28] MEDS: ACETAMINOPHEN 500 MG TAB PO SCH ×2 (00:51→06:13)
[2023-01-28 02:45] VITALS: BP 127/55; O2SAT 96
[2023-01-28 06:00] VITALS: BP 123/58; O2SAT 98
[2023-01-28] MEDS: SIMETHICONE 80MG CHEW TAB PO PRN (06:11)
[2023-01-28] MEDS ORDERED: MEASLES,MUMPS,RUBELLA VACCINE INJ (MMR-II) SC.IMMUN ONE (09:00)
[2023-01-28] MEDS: oxyCODONE 5MG TAB PO PRN (09:27)
[2023-01-28] MEDS: PRENATAL VITAMINS CHEWABLE TABLET PO SCH (09:27)
[2023-01-28 10:00] VITALS: BP 119/56; O2SAT 98
[2023-01-28] MEDS ORDERED: INFLUENZA QUADRIVALENT PF VACCINE 0.5ML SYRINGE IM.IMMUN ONE (10:00)
== END 2023-01-28 12:10 | disposition home or self-care (01) | DRG 540 ==
LOC: M LDO 15:36 → M LDI 19:55 → M OBS 01-27 01:09
PROVIDERS: ADMIT Advanced Practice Midwife; ATTEND Advanced Practice Midwife
PROC: 10D00Z1 Extraction of Products of Conception, Low, Open Approach (ICD-10-PCS; principal; 2023-01-26 21:09)
DX: O34.211 Maternal care for low transverse scar from previous cesarean delivery (principal); O60.14X0 Preterm labor third trimester with preterm delivery third trimester, not applicable or unspecified; Z3A.36 36 weeks gestation of pregnancy; Z37.0 Single live birth; B00.9 Herpesviral infection, unspecified; O98.52 Other viral diseases complicating childbirth; Z88.0 Allergy status to penicillin; Z88.5 Allergy status to narcotic agent; Z88.8 Allergy status to other drugs, medicaments and biological substances

== ENCOUNTER 2024-02-26 13:01 | Emergency (ER) | payer OTHER ==
[~2024-02-26] VITALS: Ht 154.9 cm; Wt 78.0 kg
[~2024-02-26 13:01] MED LIST changes: +CLON-621 PO; -CLON-627 PO; +IBUP-1022 PO; +ONDA-282 PO; -ONDA4TAB6 PO; +OXYC-517 PO
[2024-02-26 13:09] VITALS: TEMP 97.9
[2024-02-26] MEDS: ACETAMINOPHEN 325 MG TAB PO ONE (13:30)
[2024-02-26] MEDS: ONDANSETRON 4MG 2ML VIAL IV ONE (13:30)
[2024-02-26 14:12] LABS: BASO # 0.1 10^3/uL (0.0-0.2); BASO % 0.6 % (0.0-1.0); EOS # 0.1 10^3/uL (0.0-0.5); EOS % 0.9 % (0.0-3.0); HEMOGLOBIN 13.2 g/dl (12.0-15.5); LYMPH # 2.6 10^3/uL (1.5-5.0); MEAN CORPUSCULAR VOLUME 69.6 fl (80.0-96.0); MONO # 0.5 10^3/uL (0.0-0.8); MONO % 4.4 % (2.0-8.0); NEUTROPHILS # 7.1 10^3/uL (1.5-8.5); NEUTROPHILS % 68.9 % (36.0-66.0); PLATELET COUNT, AUTOMATED 389 10^3/uL (150-450); RED BLOOD COUNT 5.75 10^6/uL (4.00-5.40); WHITE BLOOD COUNT 10.2 10^3/uL (4.0-10.0)
[2024-02-26 14:24] LABS: INR 0.93; PARTIAL THROMBOPLASTIN TIME 33.4 SECONDS (24.8-34.2); PROTHROMBIN TIME 12.8 SECONDS (12.5-14.5)
[2024-02-26] MEDS ORDERED: DIVA500T9 (14:30)
[2024-02-26] MEDS ORDERED: METH-1022 (14:30)
[2024-02-26] MEDS ORDERED: ONDA-83 (14:30)
[2024-02-26] MEDS ORDERED: PRAZ1CAP (14:30)
[2024-02-26] MEDS ORDERED: METF500T13 (14:30)
[2024-02-26] MEDS ORDERED: LURA20TA (14:30)
[2024-02-26] MEDS ORDERED: GUAN1TAB16 (14:30)
[2024-02-26] MEDS ORDERED: TOPI1CAP10 (14:30)
[2024-02-26] MEDS ORDERED: CLON0.5T2 (14:30)
[2024-02-26 14:36] LABS: BLOOD UREA NITROGEN 8 MG/DL (9-23); CALCIUM LEVEL 9.1 MG/DL (8.5-10.1); CARBON DIOXIDE LEVEL 25 MMOL/L (20-31); CHLORIDE LEVEL 107 MMOL/L (98-107); CREATININE FOR GFR 0.69 MG/DL (0.55-1.30); GLOMERULAR FILTRATION RATE > 60.0 (>60); GLUCOSE, FASTING 85 MG/DL (60-100); SODIUM LEVEL 139 MMOL/L (136-145)
[2024-02-26 14:46] LABS: HCG, SERUM QUALITATIVE NEGATIVE (NEGATIVE)
[2024-02-26] MEDS: PROMETHAZINE 25MG/ML 1ML VIAL IM ONE (15:00)
[2024-02-26 15:59] VITALS: BP 129/85
[2024-02-26 16:16] VITALS: O2SAT 100
[2024-02-26] MEDS ORDERED: PROM25TA12 PO (16:29)
== END 2024-02-26 16:43 | disposition home or self-care (01) ==
LOC: M ED 13:01
DX: N93.8 Other specified abnormal uterine and vaginal bleeding (principal); R11.2 Nausea with vomiting, unspecified; G40.909 Epilepsy, unspecified, not intractable, without status epilepticus; F84.0 Autistic disorder; Z87.42 Personal history of other diseases of the female genital tract; Z88.0 Allergy status to penicillin; Z88.1 Allergy status to other antibiotic agents; Z88.5 Allergy status to narcotic agent; Z88.8 Allergy status to other drugs, medicaments and biological substances; Z79.1 Long term (current) use of non-steroidal anti-inflammatories (NSAID); Z79.4 Long term (current) use of insulin; Z79.83 Long term (current) use of bisphosphonates; Z79.899 Other long term (current) drug therapy
CPT/HCPCS: 76856; 80048; 84703; 85025; 85610; 85730; 86850; 86900; 86901; 93005; 93041; 93976; 96372; 96374; 99284; J2405; J2550

== ENCOUNTER 2024-04-22 12:13 | Emergency (ER) | payer OTHER, MEDICAID ==
[~2024-04-22] VITALS: Ht 154.9 cm; Wt 76.4 kg
[~2024-04-22 12:13] MED LIST changes: +CLON0.5T2; +DIVA500T9; +GUAN1TAB16; +LURA20TA; +METF500T13; +METH-1022; +ONDA-83; +PRAZ1CAP; +PROM25TA12 PO; +TOPI1CAP10
[2024-04-22] MEDS ORDERED: CONC54TA4 PO (12:29)
[2024-04-22] MEDS ORDERED: LURA40TA2 (12:29)
[2024-04-22 13:24] LABS: BASO % 0.3 % (0.0-1.0); EOS # 0.4 10^3/uL (0.0-0.5); HEMOGLOBIN 12.6 g/dl (12.0-15.5); LYMPH # 1.2 10^3/uL (1.5-5.0); LYMPH % 8.5 % (24.0-44.0); MEAN CORPUSCULAR HEMOGLOBIN 22.4 pg (27.0-33.0); MEAN CORPUSCULAR HGB CONC 33.2 g/dl (32.0-36.5); MEAN CORPUSCULAR VOLUME 67.6 fl (80.0-96.0); MONO # 0.9 10^3/uL (0.0-0.8); MONO % 6.1 % (2.0-8.0); NEUTROPHILS # 11.6 10^3/uL (1.5-8.5); NEUTROPHILS % 81.7 % (36.0-66.0); PLATELET COUNT, AUTOMATED 377 10^3/uL (150-450); RED BLOOD COUNT 5.62 10^6/uL (4.00-5.40); WHITE BLOOD COUNT 14.2 10^3/uL (4.0-10.0)
[2024-04-22 13:51] LABS: LIPASE 27 U/L (12-53)
[2024-04-22 13:53] LABS: ALBUMIN 3.5 G/DL (3.2-5.2); ALKALINE PHOSPHATASE 72 U/L (35-104); ALT/SGPT 36 U/L (7.0-40); AST/SGOT 25 U/L (<34); BILIRUBIN,DIRECT 0.2 MG/DL (<0.4); BILIRUBIN,TOTAL 0.7 MG/DL (0.3-1.2); BLOOD UREA NITROGEN 9 MG/DL (9-23); CALCIUM LEVEL 8.4 MG/DL (8.5-10.1); CARBON DIOXIDE LEVEL 27 MMOL/L (20-31); CHLORIDE LEVEL 105 MMOL/L (98-107); CK-MB VALUE MASS < 1.0 NG/ML (<3.6); CREATININE FOR GFR 0.63 MG/DL (0.55-1.30); GLOMERULAR FILTRATION RATE > 60.0 (>60); GLUCOSE, FASTING 87 MG/DL (60-100); POTASSIUM SERUM 4.5 MMOL/L (3.5-5.1); SODIUM LEVEL 141 MMOL/L (136-145); TOTAL PROTEIN 7.1 G/DL (5.7-8.2)
[2024-04-22 13:57] LABS: CPK CREATINE PHOSPHOKINASE 77 U/L (34-145); MB/CK RELATIVE INDEX 1.29 (< OR =4); RSV AMPLIFICATION NEGATIVE (NEGATIVE)
[2024-04-22 15:24] LABS: MAGNESIUM LEVEL 2.2 MG/DL (1.8-2.4)
[2024-04-22] MEDS: AZITHROMYCIN 250MG TABLET PO ONE (15:33)
[2024-04-22] MEDS: METOCLOPRAMIDE INJ 10MG/2ML VIAL IV ONE (15:36)
[2024-04-22] MEDS ORDERED: REGL10TA6 PO (15:46)
[2024-04-22] MEDS ORDERED: AZIT500T5 PO (15:46)
[2024-04-22 15:58] VITALS: BP 125/83; TEMP 97.1; O2SAT 98
== END 2024-04-22 16:05 | disposition home or self-care (01) ==
LOC: M ED 12:13
DX: J02.0 Streptococcal pharyngitis (principal); R11.10 Vomiting, unspecified; F43.10 Post-traumatic stress disorder, unspecified; F90.9 Attention-deficit hyperactivity disorder, unspecified type; G40.909 Epilepsy, unspecified, not intractable, without status epilepticus; Z88.0 Allergy status to penicillin; Z88.1 Allergy status to other antibiotic agents; Z88.5 Allergy status to narcotic agent; Z88.8 Allergy status to other drugs, medicaments and biological substances; Z79.2 Long term (current) use of antibiotics; Z79.4 Long term (current) use of insulin; Z79.83 Long term (current) use of bisphosphonates; Z79.899 Other long term (current) drug therapy
CPT/HCPCS: 71045; 80048; 80076; 82550; 82553; 83690; 83735; 84484; 85025; 87631; 87880; 93005; 93041; 94760; 96374; 99284; J2765

== ENCOUNTER 2024-07-03 17:16 | Emergency (ER) | payer OTHER ==
[~2024-07-03 17:16] MED LIST changes: +AZIT500T5 PO; +CONC54TA4 PO; +LURA40TA2; +REGL10TA6 PO
[2024-07-03] MEDS ORDERED: ISOVUE-370 76% 100ML VIAL As Ordered ONE (17:29)
[2024-07-03 17:46] LABS: BASO # 0.1 10^3/uL (0.0-0.2); BASO % 0.5 % (0.0-1.0); EOS # 0.6 10^3/uL (0.0-0.5); EOS % 4.7 % (0.0-3.0); HEMATOCRIT 36.4 % (36.0-47.0); HEMOGLOBIN 12.4 g/dl (12.0-15.5); LYMPH # 3.2 10^3/uL (1.5-5.0); LYMPH % 26.6 % (24.0-44.0); MEAN CORPUSCULAR HEMOGLOBIN 22.9 pg (27.0-33.0); MEAN CORPUSCULAR HGB CONC 34.1 g/dl (32.0-36.5); MEAN CORPUSCULAR VOLUME 67.2 fl (80.0-96.0); MONO # 0.8 10^3/uL (0.0-0.8); MONO % 6.7 % (2.0-8.0); NEUTROPHILS # 7.4 10^3/uL (1.5-8.5); NEUTROPHILS % 61.2 % (36.0-66.0); PLATELET COUNT, AUTOMATED 431 10^3/uL (150-450); RED BLOOD COUNT 5.42 10^6/uL (4.00-5.40)
[2024-07-03 17:59] LABS: INR 0.94; PARTIAL THROMBOPLASTIN TIME 33.4 SECONDS (24.8-34.2); PROTHROMBIN TIME 12.9 SECONDS (12.5-14.5)
[2024-07-03 18:11] LABS: ETHYL ALCOHOL (ETHANOL) < 0.003 % (0.000-0.010)
[2024-07-03 18:13] LABS: ALBUMIN 4.1 G/DL (3.2-5.2); ALKALINE PHOSPHATASE 102 U/L (35-104); ALT/SGPT 18 U/L (7.0-40); AST/SGOT 11 U/L (<34); BILIRUBIN,DIRECT 0.2 MG/DL (<0.4); BILIRUBIN,TOTAL 0.6 MG/DL (0.3-1.2); TOTAL PROTEIN 7.3 G/DL (5.7-8.2)
[2024-07-03 18:39] LABS: AMPHETAMINES LEVEL URINE NEGATIVE (NEGATIVE); BARBITURATES URINE NEGATIVE (NEGATIVE); BENZODIAZEPINES URINE NEGATIVE (NEGATIVE); COCAINE METABOLITE URINE NEGATIVE (NEGATIVE)
[2024-07-03 18:40] LABS: CANNABINOIDS URINE NEGATIVE (NEGATIVE); METHADONE URINE NEGATIVE (NEGATIVE); OPIATES URINE NEGATIVE (NEGATIVE); PHENCYCLIDINE URINE NEGATIVE (NEGATIVE)
[2024-07-03 19:45] VITALS: TEMP 97
[2024-07-03 19:47] LABS: RSV AMPLIFICATION NEGATIVE (NEGATIVE)
[2024-07-03 19:51] VITALS: BP 131/74; O2SAT 100
== END 2024-07-03 19:59 | disposition short-term general hospital (02) ==
LOC: M ED 17:16 → EDBD 17:16 → M ED 19:59
DX: R20.0 Anesthesia of skin (principal); M54.2 Cervicalgia; G83.11 Monoplegia of lower limb affecting right dominant side; G83.12 Monoplegia of lower limb affecting left dominant side; W01.198A Fall on same level from slipping, tripping and stumbling with subsequent striking against other object, initial encounter; G40.909 Epilepsy, unspecified, not intractable, without status epilepticus; F90.9 Attention-deficit hyperactivity disorder, unspecified type; F84.0 Autistic disorder; F43.10 Post-traumatic stress disorder, unspecified; Z88.0 Allergy status to penicillin; Z88.1 Allergy status to other antibiotic agents; Z88.5 Allergy status to narcotic agent; Z88.8 Allergy status to other drugs, medicaments and biological substances; Z79.2 Long term (current) use of antibiotics; Z79.4 Long term (current) use of insulin; Z79.83 Long term (current) use of bisphosphonates; Z79.899 Other long term (current) drug therapy; Z79.1 Long term (current) use of non-steroidal anti-inflammatories (NSAID); Y99.9 Unspecified external cause status; Y93.K1 Activity, walking an animal; Y92.9 Unspecified place or not applicable
CPT/HCPCS: 36415; 51702; 70450; 70496; 70498; 71045; 72125; 80047; 80076; 80307; 82077; 83605; 84702; 85025; 85610; 85730; 86850; 86900; 86901; 87631; 93005; 93041; 94760; 99285; Q9967

== ENCOUNTER → 2024-07-27 | Outpatient (REF) | payer OTHER ==
[2024-07-27 18:25] LABS: CHOLESTEROL RISK RATIO 3.9 (<5); HDL CHOLESTEROL 48.6 MG/DL (>40); LDL CHOLESTEROL 110.4 MG/DL (<100); NON-HDL-C 141.4 MG/DL
[2024-07-27 18:28] LABS: THYROID STIMULATING HORMONE 0.595 uIU/ML (0.55-4.78); TOTAL 25(OH) VITAMIN D 10.2 NG/ML (20.0-100.0)
[2024-07-27 18:36] LABS: HEMOGLOBIN A1c 4.3 % (4.0-6.0)
== END ==
LOC: M LAB REF 17:40
PROVIDERS: ATTEND Pediatrics
DX: E55.9 Vitamin D deficiency, unspecified (principal); E66.3 Overweight

== ENCOUNTER 2025-02-07 21:13 | Emergency (ER) | payer OTHER ==
[~2025-02-07] VITALS: Ht 154.9 cm; Wt 79.2 kg
[~2025-02-07 21:13] MED LIST changes: +EMTR1TAB16 PO; -IBUP-1022 PO; +IBUP600T42 PO; +RALT40TA PO
[2025-02-07 21:16] VITALS: BP 140/95; TEMP 98.2; O2SAT 98
[2025-02-07 23:30] LABS: HEPATITIS B SURFACE ANTIBODY POSITIVE (POSITIVE)
[2025-02-07 23:54] LABS: HIV 1&2 SCREEN NEGATIVE (NEGATIVE)
[2025-02-07 23:56] LABS: HCG, SERUM QUALITATIVE NEGATIVE (NEGATIVE)
[2025-02-08 00:02] LABS: Trichomonas vaginalis (AMP) NOT DETECTED (NEGATIVE)
[2025-02-08 00:03] LABS: HEPATITIS C VIRUS ABY INDEX < 0.02 INDEX (<0.8)
[2025-02-08 00:26] LABS: GC DNA AMPLIFICATION NEGATIVE (NEGATIVE)
== END 2025-02-08 01:06 | disposition home or self-care (01) ==
LOC: M ED 21:45
DX: T76.21XD Adult sexual abuse, suspected, subsequent encounter (principal); N83.01 Follicular cyst of right ovary; B19.10 Unspecified viral hepatitis B without hepatic coma; G40.909 Epilepsy, unspecified, not intractable, without status epilepticus; F84.0 Autistic disorder; Z88.0 Allergy status to penicillin; Z88.1 Allergy status to other antibiotic agents; Z88.5 Allergy status to narcotic agent; Z88.8 Allergy status to other drugs, medicaments and biological substances; Z79.899 Other long term (current) drug therapy; Z79.1 Long term (current) use of non-steroidal anti-inflammatories (NSAID); Z79.2 Long term (current) use of antibiotics; Z79.4 Long term (current) use of insulin